=== PATIENT | male | born 1980 | race Caucasian/White ===

== ENCOUNTER 2020-10-28 21:20 | Observation (INO) | payer BC ==
[~2020-10-28] VITALS: Ht 180.3 cm; Wt 81.9 kg
--- NOTE | 2020-10-29 00:20 | PHYS DOC ---
Past Medical History Past Medical History: Hypertension (LESA DOWD APRN) Past Surgical History: No Surgical History (LESA DOWD APRN) Smoking Status: Current Every Day Smoker Alcohol Use: None (LESA DOWD APRN) General Adult EDM: Chief Complaint: BLOODY STOOL HPI: HPI: Patient is a 40 year old male patient comes in with 2 episodes of bright red blood in his stools this evening. States he has never had this before, states there was a small amount of blood each time penis after having a stool, states he has had some watery diarrhea for the last day. States no prior episodes of watery stool. States he has had some upper abdominal discomfort and cramping for the last couple days, worsening today. States no fever, no nausea, no vomiting, no recent constipation. He has not take any medications for this. He does report he had previously been on antihypertensive medications as well as antianxiety medications however he has not taken these for a while since he change positions. Does report he has history of anxiety, he feels rather anxious right now. Denies any urinary changes. States he has never had any bloody stools, states blood was not dark or clotted, was just a small amount of bright red blood (LESA DOWD APRN) Review of Systems: Review of Systems: Constitutional: Denies fever or chills. [] Eyes: Denies change in visual acuity. [] HENT: Denies nasal congestion or sore throat. [] Respiratory: Denies cough or shortness of breath. [] Cardiovascular: Denies chest pain or edema. [] GI: Denies abdominal pain, nausea, vomiting [] States he has had 2 bright red bloody stools and some diarrhea today. : Denies dysuria. [] Musculoskeletal: Denies back pain or joint pain. [] Integument: Denies rash. [] Neurologic: Denies headache, focal weakness or sensory changes. [] Endocrine: Denies polyuria or polydipsia. [] Lymphatic: Denies swollen glands. [] Psychiatric: Denies depression . [][ States he has a history of anxiety, he has not been on meds for a while and he feels anxious about his ER visit. (LESA DOWD APRN) Heart Score: C/O Chest Pain: No Risk Factors: Risk Factors: DM, Current or recent (<one month) smoker, HTN, HLP, family history of CAD, obesity. Risk Scores: Score 0 - 3: 2.5% MACE over next 6 weeks - Discharge Home Score 4 - 6: 20.3% MACE over next 6 weeks - Admit for Clinical Observation Score 7 - 10: 72.7% MACE over next 6 weeks - Early Invasive Strategies (LESA DOWD APRN) Allergies: Allergies: Allergies Uncoded Allergies Type Severity Reaction Last Updated Verified BLOOD PRESSURE MEDICINE NOT SURE NAME Allergy Unknown 10/28/20 (LESA DOWD APRN) Physical Exam: PE: Constitutional: Well developed, well nourished, no acute distress, non-toxic appearance. [] HENT: Normocephalic, atraumatic, bilateral external ears normal, oropharynx moist, no oral exudates, nose normal. [] Eyes: PERRLA, EOMI, conjunctiva normal, no discharge. [] Neck: Normal range of motion, no tenderness, supple, no stridor. [] Cardiovascular:Heart rate regular rhythm, no murmur [] Lungs & Thorax: Bilateral breath sounds clear to auscultation [] Abdomen: Bowel sounds normal, soft, no masses, no pulsatile masses. [] tend erness to LLQ. Negative Rovsig. Negative Psoas. Negative Obturator. Negative Donis's. Skin: Warm, dry, no erythema, no rash. [] Back: No tenderness, no CVA tenderness. [] Extremities: No tenderness, no cyanosis, no clubbing, ROM intact, no edema. [] Neurologic: Alert and oriented X 3, normal motor function, normal sensory function, no focal deficits noted. [] Psychologic: Affect normal, judgement normal, mood normal. [] Rectal exam without noted lesions, bleeding, or visible external hemorroids. on Fecal Occult Blood, small amount of blood external rectum noted. no blood noted to rectal vault. No lesions palpated. (LESA DOWD APRN) Current Patient Data: Vital Signs: Vital Signs Date Time Temp Pulse Resp B/P (MAP) Pulse Ox O2 Delivery O2 Flow Rate FiO2 10/28/20 23:39 98.1 97 20 173/131 (145) 97 Room Air 98.1 (LESA DOWD APRN) EKG: EKG: [] (LESA DOWD APRN) Radiology/Procedures: Radiology/Procedures: [] (LESA DOWD APRN) Radiology/Procedures: IMAGING REPORT Signed PATIENT: SORAYA CYR ACCOUNT: [id number] : 1980 LOCATION: ER AGE: 40 SEX: M EXAM STATUS: REG ER ORD. PHYSICIAN: LESA DOWD APRN REASON: LLQ abdominal pain PROCEDURE: CT ABD PELV W/ IV CONTRST ONLY EXAMINATION: CT ABDOMEN+PELVIS W CLINICAL HISTORY: Left lower quadrant abdominal pain TECHNIQUE: CT of the abdomen and pelvis was performed using standard technique, scanning from just above the dome of the diaphragm to the symphysis pubis following administration of intravenous contrast. CT Dose Reduction Employed: One or more of the following individualized dose reduction techniques were utilized for this examination: 1. Automated exposure control 2. Adjustment of the mA and/or kV according to patient size 3. Use of iterative reconstruction technique. COMPARISON: None FINDINGS: Partially visualized heart and lungs unremarkable. Contracted gallbladder suboptimally evaluated. Liver, pancreas, spleen, and adrenal glands unremarkable. Subcentimeter hypoenhancing cortical focus in the midpole the left kidney, too small adequately characterize but likely benign. Minimally filled urinary bladder suboptimally evaluated. Nonenlarged prostate. Fluid-filled ascending and proximal transverse colon with dependent hyperdensity in the cecum, nonspecific. No bowel dilation or definite wall thickening. Normal appendix. No abdominal aortic or iliac artery aneurysm. No evidence of acute osseous abnormality. IMPRESSION: No definitive evidence of acute abdominopelvic abnormality. Fluid-filled ascending and proximal transverse colon, nonspecific. Electronically signed by: Harsha Farley DO (10/29/2020 1:37 AM) [facility] DICTATED and SIGNED BY: HARSHA FARLEY DO DATE: 10/29/20 [id number] ([facility]) Course & Med Decision Making: Course & Med Decision Making Pertinent Labs and Imaging studies reviewed. (See chart for details) []Patient with noted hypertension. Does report he had been off his hypertensive medications for quite some time. He is agreeable to starting on them again, he does not know what he was taking before. @[address] Mejia, pending imaging and disposition of patient. (LESA DOWD APRN) Course & Med Decision Making I received sign out at shift change. 40-year-old male (not on any anticoagulants) with concern for 2 episodes of bright red blood per rectum in setting of uncontrolled hypertension and leukocytosis. N.p.o. 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 CT abdomen/pelvis with no definitive acute process, w/fluid-filled colonic loops. Patient continues to have abdominal pain. Will admit for further medical management and GI consultation. Patient stable at time of admission and agrees with this plan. I have spoken with the patient and/or caregivers. I have explained the patient's condition, diagnosis and treatment plan based on the information available to me at this time. I have answered the patient's and/or caregivers questions and answered any concerns. The patient and/or caregivers have as good an understanding of the patient's diagnosis, condition and treatment plan as can be expected at this point. The patient has been stabilized within the capability of the emergency department. The patient will be transported for further care and management or will be moved to an observation or inpatient service. I have communicated with the staff or medical practitioner taking over this patient's care. (JOSÉ MEJIA DO) Dragon Disclaimer: Dragon Disclaimer: This electronic medical record was generated, in whole or in part, using a voice recognition dictation system. (LESA DOWD APRN) Departure Departure Impression: Primary Impression: Hematochezia Additional Impressions: Uncontrolled hypertension Leukocytosis Disposition: ADMITTED INPATIENT Admitting Physician: GAYE (Dr. hTao) (JOSÉ MEJIA DO) Condition: STABLE Referrals: NO PCP (PCP) LESA DOWD APRN Oct 29, 2020 00:20 JOSÉ MEJIA DO Oct 29, 2020 02:16
[2020-10-29 00:21] LABS: BASO # 0.1 x10^3/uL (0.0-0.2); BASO % 0 % (0-3); EOS % 0 % (0-3); HEMATOCRIT 46.4 % (39.0-53.0); HEMOGLOBIN 16.2 g/dL (13.0-17.5); LYMPH # 3.5 x10^3/uL (1.0-4.8); LYMPH % 18 % (24-48); MEAN CORPUSCULAR HEMOGLOBIN 31 pg (25-35); MEAN CORPUSCULAR HGB CONC 35 g/dL (31-37); MEAN CORPUSCULAR VOLUME 88 fL (79-100); MONO # 1.3 x10^3/uL (0.0-1.1); MONO % 7 % (0-9); NEUT # 14.9 x10^3/uL (1.8-7.7); NEUT % 75 % (31-73); PLATELET COUNT 370 x10^3/uL (140-400); RED BLOOD COUNT 5.25 x10^6/uL (4.30-5.70); RED CELL DISTRIBUTION WIDTH 14.6 % (11.5-14.5); WHITE BLOOD COUNT 19.8 x10^3/uL (4.0-11.0)
[2020-10-29 00:23] LABS: BILIRUBIN,URINE NEGATIVE (NEG); CLARITY,URINE CLEAR; COLOR,URINE YELLOW; NITRITE,URINE NEGATIVE (NEG); PROTEIN,URINE NEGATIVE (NEG-TRACE); UROBILINOGEN,URINE 0.2 mg/dL (0.2 mg/dL)
[2020-10-29 00:34] LABS: CALCIUM 11.9 mg/dL (8.5-10.1); CREATININE 1.1 mg/dL (0.7-1.3); GFR 74.1; POTASSIUM 3.9 mmol/L (3.5-5.1)
[2020-10-29 00:40] LABS: ALBUMIN 4.5 g/dL (3.4-5.0); ALBUMIN/GLOBULIN RATIO 1.2 (1.0-1.7); TOTAL BILIRUBIN 0.3 mg/dL (0.2-1.0); TOTAL PROTEIN 8.4 g/dL (6.4-8.2)
[2020-10-29 00:40] LABS: BACTERIA,URINE 0 /HPF (0-FEW); GRANULAR CASTS,URINE OCCASIONAL /HPF; HYALINE CASTS, URINE OCCASIONAL /HPF
[2020-10-29] MEDS ORDERED: CONTRAST GIVEN. MC PRN (01:00)
[2020-10-29 01:03] LABS: FECAL OB PT POSITIVE (NEG)
[2020-10-29] MEDS ORDERED: IV NORMAL SALINE 1000ML BAG 1,000 ML IV ONE (01:30)
[2020-10-29] MEDS ORDERED: IOHEXOL 300 MG/ML 100ML VIAL. IV ONE (01:30)
--- NOTE | 2020-10-29 01:39 | RAD ---
EXAMINATION: CT ABDOMEN+PELVIS W CLINICAL HISTORY: Left lower quadrant abdominal pain TECHNIQUE: CT of the abdomen and pelvis was performed using standard technique, scanning from just ab ove the dome of the diaphragm to the symphysis pubis following administration of intravenous contrast . CT Dose Reduction Employed: One or more of the following individualized dose reduction techniques wer e utilized for this examination: 1. Automated exposure control 2. Adjustment of the mA and/or kV ac cording to patient size 3. Use of iterative reconstruction technique. COMPARISON: None FINDINGS: Partially visualized heart and lungs unremarkable. Contracted gallbladder suboptimally evaluated. Liver, pancreas, spleen, and adrenal glands unremarkab le. Subcentimeter hypoenhancing cortical focus in the midpole the left kidney, too small adequately dilia cterize but likely benign. Minimally filled urinary bladder suboptimally evaluated. Nonenlarged prostate. Fluid-filled ascending and proximal transverse colon with dependent hyperdensity in the cecum, nonspe cific. No bowel dilation or definite wall thickening. Normal appendix. No abdominal aortic or iliac artery aneurysm. No evidence of acute osseous abnormality. IMPRESSION: No definitive evidence of acute abdominopelvic abnormality. Fluid-filled ascending and proximal transverse colon, nonspecific. Electronically signed by: Harsha Diggs DO (10/29/2020 1:37 AM) [facility]
[2020-10-29 01:55] LABS: % LYMPHS 14 % (24-48); % MONOS 6 % (0-10); % SEGS 80 % (35-66); PLT ESTIMATE ADEQUATE (ADEQUATE)
[2020-10-29] MEDS ORDERED: FAMOTIDINE 20 MG/2 ML VIAL IVP ONE (04:15)
[2020-10-29] MEDS ORDERED: PANTOPRAZOLE IV PUSH 40 MG VIAL. IVP ONE (05:00)
[2020-10-29] MEDS ORDERED: hydrALAZINE 20 MG/ML VIAL. IVP PRN (06:30)
[2020-10-29] MEDS ORDERED: HALOPERIDOL LACTATE 5 MG/ML VIAL. IVP PRN (06:45)
[2020-10-29] MEDS ORDERED: diphenhydrAMINE 50 MG/ML VIAL IVP PRN (06:45)
[2020-10-29] MEDS ORDERED: BP med (06:46)
[2020-10-29 07:00] VITALS: BP 170/111
--- NOTE | 2020-10-29 07:04 | PDOC1 ---
History and Physical Date of Admission Date of Admission DATE: 10/29/20 TIME: 06:35 Identification/Chief Complaint Chief Complaint Hematochezia Source Source: Chart review, Patient History of Present Illness History of Present Illness Patient is a 40-year-old male with past medical history anxiety, hypertension, EtOH abuse, who presents to the ED with 2 episodes of bright red blood per rectum last evening. States he is never had any similar symptoms prior. He reports associated upper abdominal cramping for the past 2 days. Labs on admission, hemoglobin 16.2, hematocrit 46.4, WBC 19.8, lactic acid 2.5, stool occult blood positive. CT abdomen/pelvis showed no definitive process, but fluid-filled ascending proximal transverse colon. Of note, patient drinks anywhere from 212 beers on the weekends, and states on Tuesday evening he drank from 9 PM to 1 AM the next morning. He does admit to regular NSAID use due to his intermittent work induced headaches. He was admitted for further medical management. Past Medical History Past Medical History Anxiety, HTN Past Surgical History Past Surgical History: No pertinent history Family History Family History: Hypertension Social History Smoke: 1 pack per day ALCOHOL: heavy Drugs: None Current Problem List Problem List Problems Medical Problems: (1) Hematochezia Status: Acute (2) Leukocytosis Status: Acute (3) Uncontrolled hypertension Status: Acute Current Medications Current Medications Current Medications Iohexol (Omnipaque 300 Mg/ml) 75 ml 1X ONCE IV Last administered on 10/29/20at 01:00; Start 10/29/20 at 01:30; Stop 10/29/20 at 01:31; Status DC Sodium Chloride 1,000 ml @ 1,000 mls/hr 1X ONCE IV Last administered on 10/29/20at 02:13; Start 10/29/20 at 01:30; Stop 10/29/20 at 02:29; Status DC Info (CONTRAST GIVEN -- Rx MONITORING) 1 each PRN DAILY PRN MC SEE COMMENTS; Start 10/29/20 at 01:00; Stop 10/31/20 at 00:59 Famotidine (Pepcid Vial) 80 mg 1X ONCE IVP ; Start 10/29/20 at 04:15; Stop 10/29/20 at 04:16; Status UNV Pantoprazole Sodium (PROTONIX VIAL for IV PUSH) 80 mg 1X ONCE IVP Last administered on 10/29/20at 05:00; Start 10/29/20 at 05:00; Stop 10/29/20 at 05:01; Status DC Hydralazine HCl (Apresoline Inj) 10 mg PRN Q4HRS PRN IVP ELEVATED BP, SEE COMMENTS; Start 10/29/20 at 06:30; Status UNV Allergies Allergies: Coded Allergies: lisinopril (Verified Allergy, Severe, Swelling, 10/29/20) tongue swollen ROS Review of System GENERAL: No history of weight change, weakness or fevers. SKIN: No bruising, hair changes or rashes. EYES: No blurred, double or loss of vision. NOSE AND THROAT: No history of nosebleeds, hoarseness or sore throat. HEART: Denies chest pain, denies palpitations. LUNGS: Denies cough, hemoptysis, wheezing or shortness of breath. GASTROINTESTINAL: Hematochezia, abdominal pain. Denies nausea, vomiting. GENITOURINARY: Denies dysuria, frequency, urgency, hematuria. NEUROLOGIC: Denies history of numbness, tingling, tremor or weakness. PSYCHIATRIC: Denies anxiety, denies depression. ENDOCRINE: No history of heat or cold intolerance, polyuria or polydipsia. EXTREMITIES: Denies muscle weakness, joint pain, pain on walking or stiffness. Physical Exam Physical Exam General: Alert, Oriented X3, Cooperative, No acute distress HEENT: PERRLA, EOMI Lungs: Clear to auscultation, Normal air movement Heart: RRR, no murmurs Cardiovascular: S1, S2 Abdomen: Normal bowel sounds, Soft, No tenderness Extremities: No clubbing, No cyanosis Skin: No rashes, No significant lesion Neuro: Normal speech, Normal tone, Sensation intact Psych/Mental Status: Mental status NL, Mood NL Vitals Vitals Vital Signs Date Time Temp Pulse Resp B/P (MAP) Pulse Ox O2 Delivery O2 Flow Rate FiO2 10/29/20 04:36 74 9 179/102 (127) 10/28/20 23:39 98.1 97 Room Air 98.1 Labs Labs Laboratory Tests Test 10/28/20 21:34 10/29/20 00:01 10/29/20 00:41 10/29/20 04:27 Urine Color Yellow Urine Clarity Clear Urine pH 6.0 (<5.0-8.0) Urine Specific [place] 1.020 (1.000-1.030) Urine Protein Negative mg/dL (NEG-TRACE) Urine Glucose (UA) Negative mg/dL (NEG) Urine Ketones (Stick) Trace mg/dL (NEG) Urine Blood Negative (NEG) Urine Nitrite Negative (NEG) Urine Bilirubin Negative (NEG) Urine Urobilinogen Dipstick 0.2 mg/dL (0.2 mg/dL) Urine Leukocyte Esterase Negative (NEG) Urine RBC 1-2 /HPF (0-2) Urine WBC 1-4 /HPF (0-4) Urine Squamous Epithelial Cells Occ /LPF Urine Bacteria 0 /HPF (0-FEW) Urine Hyaline Casts Occasional /HPF Urine Granular Casts Occasional /HPF Urine Mucus Slight /LPF White Blood Count 19.8 x10^3/uL (4.0-11.0) Red Blood Count 5.25 x10^6/uL (4.30-5.70) Hemoglobin 16.2 g/dL (13.0-17.5) Hematocrit 46.4 % (39.0-53.0) Mean Corpuscular Volume 88 fL (79-100) Mean Corpuscular Hemoglobin 31 pg (25-35) Mean Corpuscular Hemoglobin Concent 35 g/dL (31-37) Red Cell Distribution Width 14.6 % (11.5-14.5) Platelet Count 370 x10^3/uL (140-400) Neutrophils (%) (Auto) 75 % (31-73) Lymphocytes (%) (Auto) 18 % (24-48) Monocytes (%) (Auto) 7 % (0-9) Eosinophils (%) (Auto) 0 % (0-3) Basophils (%) (Auto) 0 % (0-3) Neutrophils # (Auto) 14.9 x10^3/uL (1.8-7.7) Lymphocytes # (Auto) 3.5 x10^3/uL (1.0-4.8) Monocytes # (Auto) 1.3 x10^3/uL (0.0-1.1) Eosinophils # (Auto) 0.0 x10^3/uL (0.0-0.7) Basophils # (Auto) 0.1 x10^3/uL (0.0-0.2) Segmented Neutrophils % 80 % (35-66) Lymphocytes % 14 % (24-48) Monocytes % 6 % (0-10) Platelet Estimate Adequate (ADEQUATE) Sodium Level 141 mmol/L (136-145) Potassium Level 3.9 mmol/L (3.5-5.1) Chloride Level 102 mmol/L (98-107) Carbon Dioxide Level 26 mmol/L (21-32) Anion Gap 13 (6-14) Blood Urea Nitrogen 9 mg/dL (8-26) Creatinine 1.1 mg/dL (0.7-1.3) Estimated GFR (Cockcroft-Gault) 74.1 BUN/Creatinine Ratio 8 (6-20) Glucose Level 115 mg/dL (70-99) Lactic Acid Level 2.5 mmol/L (0.4-2.0) 1.3 mmol/L (0.4-2.0) Calcium Level 11.9 mg/dL (8.5-10.1) Total Bilirubin 0.3 mg/dL (0.2-1.0) Aspartate Amino Transf (AST/SGOT) 21 U/L (15-37) Alanine Aminotransferase (ALT/SGPT) 24 U/L (16-63) Alkaline Phosphatase 88 U/L (46-116) Total Protein 8.4 g/dL (6.4-8.2) Albumin 4.5 g/dL (3.4-5.0) Albumin/Globulin Ratio 1.2 (1.0-1.7) Stool Occult Blood Positive (NEG) Laboratory Tests Test 10/28/20 21:34 10/29/20 00:01 10/29/20 00:41 10/29/20 04:27 Urine Color Yellow Urine Clarity Clear Urine pH 6.0 (<5.0-8.0) Urine Specific [place] 1.020 (1.000-1.030) Urine Protein Negative mg/dL (NEG-TRACE) Urine Glucose (UA) Negative mg/dL (NEG) Urine Ketones (Stick) Trace mg/dL (NEG) Urine Blood Negative (NEG) Urine Nitrite Negative (NEG) Urine Bilirubin Negative (NEG) Urine Urobilinogen Dipstick 0.2 mg/dL (0.2 mg/dL) Urine Leukocyte Esterase Negative (NEG) Urine RBC 1-2 /HPF (0-2) Urine WBC 1-4 /HPF (0-4) Urine Squamous Epithelial Cells Occ /LPF Urine Bacteria 0 /HPF (0-FEW) Urine Hyaline Casts Occasional /HPF Urine Granular Casts Occasional /HPF Urine Mucus Slight /LPF White Blood Count 19.8 x10^3/uL (4.0-11.0) Red Blood Count 5.25 x10^6/uL (4.30-5.70) Hemoglobin 16.2 g/dL (13.0-17.5) Hematocrit 46.4 % (39.0-53.0) Mean Corpuscular Volume 88 fL (79-100) Mean Corpuscular Hemoglobin 31 pg (25-35) Mean Corpuscular Hemoglobin Concent 35 g/dL (31-37) Red Cell Distribution Width 14.6 % (11.5-14.5) Platelet Count 370 x10^3/uL (140-400) Neutrophils (%) (Auto) 75 % (31-73) Lymphocytes (%) (Auto) 18 % (24-48) Monocytes (%) (Auto) 7 % (0-9) Eosinophils (%) (Auto) 0 % (0-3) Basophils (%) (Auto) 0 % (0-3) Neutrophils # (Auto) 14.9 x10^3/uL (1.8-7.7) Lymphocytes # (Auto) 3.5 x10^3/uL (1.0-4.8) Monocytes # (Auto) 1.3 x10^3/uL (0.0-1.1) Eosinophils # (Auto) 0.0 x10^3/uL (0.0-0.7) Basophils # (Auto) 0.1 x10^3/uL (0.0-0.2) Segmented Neutrophils % 80 % (35-66) Lymphocytes % 14 % (24-48) Monocytes % 6 % (0-10) Platelet Estimate Adequate (ADEQUATE) Sodium Level 141 mmol/L (136-145) Potassium Level 3.9 mmol/L (3.5-5.1) Chloride Level 102 mmol/L (98-107) Carbon Dioxide Level 26 mmol/L (21-32) Anion Gap 13 (6-14) Blood Urea Nitrogen 9 mg/dL (8-26) Creatinine 1.1 mg/dL (0.7-1.3) Estimated GFR (Cockcroft-Gault) 74.1 BUN/Creatinine Ratio 8 (6-20) Glucose Level 115 mg/dL (70-99) Lactic Acid Level 2.5 mmol/L (0.4-2.0) 1.3 mmol/L (0.4-2.0) Calcium Level 11.9 mg/dL (8.5-10.1) Total Bilirubin 0.3 mg/dL (0.2-1.0) Aspartate Amino Transf (AST/SGOT) 21 U/L (15-37) Alanine Aminotransferase (ALT/SGPT) 24 U/L (16-63) Alkaline Phosphatase 88 U/L (46-116) Total Protein 8.4 g/dL (6.4-8.2) Albumin 4.5 g/dL (3.4-5.0) Albumin/Globulin Ratio 1.2 (1.0-1.7) Stool Occult Blood Positive (NEG) Images Images CT ABD PELV W/ IV CONTRST ONLY EXAMINATION: CT ABDOMEN+PELVIS W CLINICAL HISTORY: Left lower quadrant abdominal pain TECHNIQUE: CT of the abdomen and pelvis was performed using standard technique, scanning from just above the dome of the diaphragm to the symphysis pubis fo llowing administration of intravenous contrast. CT Dose Reduction Employed: One or more of the following individualized dose reduction techniques were utilized for this examination: 1. Automated exposure control 2. Adjustment of the mA and/or kV according to patient size 3. Use of iterative reconstruction technique. COMPARISON: None FINDINGS: Partially visualized heart and lungs unremarkable. Contracted gallbladder suboptimally evaluated. Liver, pancreas, spleen, and adrenal glands unremarkable. Subcentimeter hypoenhancing cortical focus in the midpole the left kidney, too small adequately characterize but likely benign. Minimally filled urinary bladder suboptimally evaluated. Nonenlarged prostate. Fluid-filled ascending and proximal transverse colon with dependent hyperdensity in the cecum, nonspecific. No bowel dilation or definite wall thickening. Normal appendix. No abdominal aortic or iliac artery aneurysm. No evidence of acute osseous abnormality. IMPRESSION: No definitive evidence of acute abdominopelvic abnormality. Fluid-filled ascending and proximal transverse colon, nonspecific. VTE Prophylaxis Ordered VTE Prophylaxis Devices: Yes VTE Pharmacological Prophylaxi: No Assessment/Plan Assessment/Plan Hematochezia EtOH abuse HTN Leukocytosis Lactic acidosis Plan: Consultation placed to GI; NPO for any possible acute intervention I doubt there will be any need for endoscopy or colonoscopy during this particular visit I counseled patient on EtOH and NSAID use Patient received IV PPI in the ER Alcohol withdrawal treatment protocol FEN - NPO PPX - SCDs FULL CODE Dispo - OBS for above I anticipate discharge home with self-care today Justifications for Admission Other Justification LUIZ MERRITT MD Oct 29, 2020 07:04
[2020-10-29] MEDS ORDERED: ACETAMINOPHEN 325 MG TABLET. PO PRN (07:15)
[2020-10-29] MEDS ORDERED: ONDANSETRON PF 4 MG/2 ML VIAL. IVP PRN (07:15)
[2020-10-29] MEDS ORDERED: CALCIUM CARBONATE 500 MG TAB.CHEW PO PRN (07:15)
[2020-10-29] MEDS ORDERED: MORPHINE SULFATE 2 MG/ML INJ. IV PRN (07:15)
[2020-10-29] MEDS ORDERED: MAG HYDROX/ALUMINUM HYD/SIMETH 30 ML ORAL.SUSP PO PRN (07:15)
[2020-10-29 08:59] VITALS: BP 179/102
[2020-10-29] MEDS ORDERED: MULTIVIT INFUSN,ADULT 4,VIT K 10 ML, THIAMINE INJ 100 MG, FOLIC ACID INJ 1 MG in IV NOR... IV SCH (09:00)
--- NOTE | 2020-10-29 09:02 | PDOC2 ---
GI CONSULT Date of Service: DATE: 10/29/20 TIME: 09:02 Reason For Consult: GI bleed HPI: HPI: 40 y/o male admitted through ER. "[place] off" x 2 weeks w/ fatigue and decreased appetite. Yesterday developed mid abdominal burning and diarrhea x 3, then hematochezia x 3. These symptoms have now resolved. Occasional heartburn after spicy foods, coffee, or beer. Takes Tums. No dysphagia, n/v, constipation, melena, or weight loss. Generally no issues w/ stooling or pain. No previous EGD or colonoscopy. No GB, liver, pancreas, or PUD history. Takes ibuprofen PRN. 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 Has been off medication for anxiety and HTN for 2.5 years. PMH: PMH: seizure x 1 ("electrolytes off"), HTN, anxiety FH: Family History: No pertinent hx (denies GI cancers and IBD) Social History: Smoke: <1 pack per day ALCOHOL: other (2-12 beers on weekends) Drugs: None ROS: GEN: +fatigue HEENT: Denies blurred vision, sore throat CV: Denies chest pain RESP: Denies shortness of air, cough GI: Per HPI : Denies hematuria, dysuria ENDO: Denies weight changes NEURO: Denies confusion, dizziness MSK: Denies weakness, joint pain/swelling SKIN: Denies jaundice, pruritus Vitals: Vitals: Vital Signs Date Time Temp Pulse Resp B/P (MAP) Pulse Ox O2 Delivery O2 Flow Rate FiO2 10/29/20 08:59 74 179/102 10/29/20 07:52 Room Air 10/29/20 04:36 9 10/28/20 23:39 98.1 97 98.1 Labs: Labs: Laboratory Tests Test 10/28/20 21:34 10/29/20 00:01 10/29/20 00:41 10/29/20 04:27 Urine Color Yellow Urine Clarity Clear Urine pH 6.0 (<5.0-8.0) Urine Specific [place] 1.020 (1.000-1.030) Urine Protein Negative mg/dL (NEG-TRACE) Urine Glucose (UA) Negative mg/dL (NEG) Urine Ketones (Stick) Trace mg/dL (NEG) Urine Blood Negative (NEG) Urine Nitrite Negative (NEG) Urine Bilirubin Negative (NEG) Urine Urobilinogen Dipstick 0.2 mg/dL (0.2 mg/dL) Urine Leukocyte Esterase Negative (NEG) Urine RBC 1-2 /HPF (0-2) Urine WBC 1-4 /HPF (0-4) Urine Squamous Epithelial Cells Occ /LPF Urine Bacteria 0 /HPF (0-FEW) Urine Hyaline Casts Occasional /HPF Urine Granular Casts Occasional /HPF Urine Mucus Slight /LPF White Blood Count 19.8 x10^3/uL (4.0-11.0) Red Blood Count 5.25 x10^6/uL (4.30-5.70) Hemoglobin 16.2 g/dL (13.0-17.5) Hematocrit 46.4 % (39.0-53.0) Mean Corpuscular Volume 88 fL (79-100) Mean Corpuscular Hemoglobin 31 pg (25-35) Mean Corpuscular Hemoglobin Concent 35 g/dL (31-37) Red Cell Distribution Width 14.6 % (11.5-14.5) Platelet Count 370 x10^3/uL (140-400) Neutrophils (%) (Auto) 75 % (31-73) Lymphocytes (%) (Auto) 18 % (24-48) Monocytes (%) (Auto) 7 % (0-9) Eosinophils (%) (Auto) 0 % (0-3) Basophils (%) (Auto) 0 % (0-3) Neutrophils # (Auto) 14.9 x10^3/uL (1.8-7.7) Lymphocytes # (Auto) 3.5 x10^3/uL (1.0-4.8) Monocytes # (Auto) 1.3 x10^3/uL (0.0-1.1) Eosinophils # (Auto) 0.0 x10^3/uL (0.0-0.7) Basophils # (Auto) 0.1 x10^3/uL (0.0-0.2) Segmented Neutrophils % 80 % (35-66) Lymphocytes % 14 % (24-48) Monocytes % 6 % (0-10) Platelet Estimate Adequate (ADEQUATE) Sodium Level 141 mmol/L (136-145) Potassium Level 3.9 mmol/L (3.5-5.1) Chloride Level 102 mmol/L (98-107) Carbon Dioxide Level 26 mmol/L (21-32) Anion Gap 13 (6-14) Blood Urea Nitrogen 9 mg/dL (8-26) Creatinine 1.1 mg/dL (0.7-1.3) Estimated GFR (Cockcroft-Gault) 74.1 BUN/Creatinine Ratio 8 (6-20) Glucose Level 115 mg/dL (70-99) Lactic Acid Level 2.5 mmol/L (0.4-2.0) 1.3 mmol/L (0.4-2.0) Calcium Level 11.9 mg/dL (8.5-10.1) Total Bilirubin 0.3 mg/dL (0.2-1.0) Aspartate Amino Transf (AST/SGOT) 21 U/L (15-37) Alanine Aminotransferase (ALT/SGPT) 24 U/L (16-63) Alkaline Phosphatase 88 U/L (46-116) Total Protein 8.4 g/dL (6.4-8.2) Albumin 4.5 g/dL (3.4-5.0) Albumin/Globulin Ratio 1.2 (1.0-1.7) Stool Occult Blood Positive (NEG) Allergies: Coded Allergies: lisinopril (Verified Allergy, Severe, Swelling, 10/29/20) tongue swollen Medications: Current Medications Medications (Trade) Dose Ordered Sig/Danni Route PRN Reason Start Time Stop Time Status Last Admin Dose Admin Iohexol (Omnipaque 300 Mg/ml) 75 ml 1X ONCE IV 10/29/20 01:30 10/29/20 01:31 DC 10/29/20 01:00 Sodium Chloride 1,000 ml @ 1,000 mls/hr 1X ONCE IV 10/29/20 01:30 10/29/20 02:29 DC 10/29/20 02:13 Pantoprazole Sodium (PROTONIX VIAL for IV PUSH) 80 mg 1X ONCE IVP 10/29/20 05:00 10/29/20 05:01 DC 10/29/20 05:00 Hydralazine HCl (Apresoline Inj) 10 mg PRN Q4HRS PRN IVP ELEVATED BP, SEE COMMENTS 10/29/20 06:30 10/29/20 08:59 Imaging: Imaging: CT A/P IMPRESSION: No definitive evidence of acute abdominopelvic abnormality. Fluid-filled ascending and proximal transverse colon, nonspecific. PE: GEN: NAD HEENT: Atraumatic, PERRL LUNGS: CTAB HEART: RRR ABD: NABS, S/ND/NT EXTREMITY: No edema SKIN: No rashes, no jaundice NEURO/PSYCH: A & O 3 A/P: A/P: Abd pain, diarrhea/hematochezia, fatigue Heartburn CRC screen - average risk -- ?infectious? Symptoms resolved. Labs normal. CT findings could relate to diarrhea. Try clears, ADAT. Consider DC soon if tolerates. If diarrhea recurs, check stool studies. 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 Can pursue outpt EGD and colonoscopy. D/w Dr. Dickerson later on - pt is asymptomatic, had a normal stool - plans for discharge. Our office will call to arrange scopes. MERRY SCHERER Oct 29, 2020 09:02
--- NOTE | 2020-10-29 09:20 | PDOC3 ---
Discharge Summary Visit Information Date of Admission: Oct 29, 2020 Date of Discharge: Oct 29, 2020 Final Diagnosis Problems Medical Problems: (1) Hematochezia Status: Acute (2) Leukocytosis Status: Acute (3) Uncontrolled hypertension Status: Acute Brief Hospital Course Allergies Allergies Coded Allergies Type Severity Reaction Last Updated Verified lisinopril Allergy Severe Swelling 10/29/20 Yes Vital Signs Vital Signs Date Time Temp Pulse Resp B/P (MAP) Pulse Ox O2 Delivery O2 Flow Rate FiO2 10/29/20 08:59 74 179/102 10/29/20 07:52 Room Air 10/29/20 04:36 9 10/28/20 23:39 98.1 97 98.1 Lab Results Laboratory Tests Test 10/28/20 21:34 10/29/20 00:01 10/29/20 00:41 10/29/20 04:27 Urine Color Yellow Urine Clarity Clear Urine pH 6.0 (<5.0-8.0) Urine Specific [place] 1.020 (1.000-1.030) Urine Protein Negative mg/dL (NEG-TRACE) Urine Glucose (UA) Negative mg/dL (NEG) Urine Ketones (Stick) Trace mg/dL (NEG) Urine Blood Negative (NEG) Urine Nitrite Negative (NEG) Urine Bilirubin Negative (NEG) Urine Urobilinogen Dipstick 0.2 mg/dL (0.2 mg/dL) Urine Leukocyte Esterase Negative (NEG) Urine RBC 1-2 /HPF (0-2) Urine WBC 1-4 /HPF (0-4) Urine Squamous Epithelial Cells Occ /LPF Urine Bacteria 0 /HPF (0-FEW) Urine Hyaline Casts Occasional /HPF Urine Granular Casts Occasional /HPF Urine Mucus Slight /LPF White Blood Count 19.8 x10^3/uL (4.0-11.0) Red Blood Count 5.25 x10^6/uL (4.30-5.70) Hemoglobin 16.2 g/dL (13.0-17.5) Hematocrit 46.4 % (39.0-53.0) Mean Corpuscular Volume 88 fL (79-100) Mean Corpuscular Hemoglobin 31 pg (25-35) Mean Corpuscular Hemoglobin Concent 35 g/dL (31-37) Red Cell Distribution Width 14.6 % (11.5-14.5) Platelet Count 370 x10^3/uL (140-400) Neutrophils (%) (Auto) 75 % (31-73) Lymphocytes (%) (Auto) 18 % (24-48) Monocytes (%) (Auto) 7 % (0-9) Eosinophils (%) (Auto) 0 % (0-3) Basophils (%) (Auto) 0 % (0-3) Neutrophils # (Auto) 14.9 x10^3/uL (1.8-7.7) Lymphocytes # (Auto) 3.5 x10^3/uL (1.0-4.8) Monocytes # (Auto) 1.3 x10^3/uL (0.0-1.1) Eosinophils # (Auto) 0.0 x10^3/uL (0.0-0.7) Basophils # (Auto) 0.1 x10^3/uL (0.0-0.2) Segmented Neutrophils % 80 % (35-66) Lymphocytes % 14 % (24-48) Monocytes % 6 % (0-10) Platelet Estimate Adequate (ADEQUATE) Sodium Level 141 mmol/L (136-145) Potassium Level 3.9 mmol/L (3.5-5.1) Chloride Level 102 mmol/L (98-107) Carbon Dioxide Level 26 mmol/L (21-32) Anion Gap 13 (6-14) Blood Urea Nitrogen 9 mg/dL (8-26) Creatinine 1.1 mg/dL (0.7-1.3) Estimated GFR (Cockcroft-Gault) 74.1 BUN/Creatinine Ratio 8 (6-20) Glucose Level 115 mg/dL (70-99) Lactic Acid Level 2.5 mmol/L (0.4-2.0) 1.3 mmol/L (0.4-2.0) Calcium Level 11.9 mg/dL (8.5-10.1) Total Bilirubin 0.3 mg/dL (0.2-1.0) Aspartate Amino Transf (AST/SGOT) 21 U/L (15-37) Alanine Aminotransferase (ALT/SGPT) 24 U/L (16-63) Alkaline Phosphatase 88 U/L (46-116) Total Protein 8.4 g/dL (6.4-8.2) Albumin 4.5 g/dL (3.4-5.0) Albumin/Globulin Ratio 1.2 (1.0-1.7) Stool Occult Blood Positive (NEG) Laboratory Tests Test 10/28/20 21:34 10/29/20 00:01 10/29/20 00:41 10/29/20 04:27 Urine Color Yellow Urine Clarity Clear Urine pH 6.0 (<5.0-8.0) Urine Specific [place] 1.020 (1.000-1.030) Urine Protein Negative mg/dL (NEG-TRACE) Urine Glucose (UA) Negative mg/dL (NEG) Urine Ketones (Stick) Trace mg/dL (NEG) Urine Blood Negative (NEG) Urine Nitrite Negative (NEG) Urine Bilirubin Negative (NEG) Urine Urobilinogen Dipstick 0.2 mg/dL (0.2 mg/dL) Urine Leukocyte Esterase Negative (NEG) Urine RBC 1-2 /HPF (0-2) Urine WBC 1-4 /HPF (0-4) Urine Squamous Epithelial Cells Occ /LPF Urine Bacteria 0 /HPF (0-FEW) Urine Hyaline Casts Occasional /HPF Urine Granular Casts Occasional /HPF Urine Mucus Slight /LPF White Blood Count 19.8 x10^3/uL (4.0-11.0) Red Blood Count 5.25 x10^6/uL (4.30-5.70) Hemoglobin 16.2 g/dL (13.0-17.5) Hematocrit 46.4 % (39.0-53.0) Mean Corpuscular Volume 88 fL (79-100) Mean Corpuscular Hemoglobin 31 pg (25-35) Mean Corpuscular Hemoglobin Concent 35 g/dL (31-37) Red Cell Distribution Width 14.6 % (11.5-14.5) Platelet Count 370 x10^3/uL (140-400) Neutrophils (%) (Auto) 75 % (31-73) Lymphocytes (%) (Auto) 18 % (24-48) Monocytes (%) (Auto) 7 % (0-9) Eosinophils (%) (Auto) 0 % (0-3) Basophils (%) (Auto) 0 % (0-3) Neutrophils # (Auto) 14.9 x10^3/uL (1.8-7.7) Lymphocytes # (Auto) 3.5 x10^3/uL (1.0-4.8) Monocytes # (Auto) 1.3 x10^3/uL (0.0-1.1) Eosinophils # (Auto) 0.0 x10^3/uL (0.0-0.7) Basophils # (Auto) 0.1 x10^3/uL (0.0-0.2) Segmented Neutrophils % 80 % (35-66) Lymphocytes % 14 % (24-48) Monocytes % 6 % (0-10) Platelet Estimate Adequate (ADEQUATE) Sodium Level 141 mmol/L (136-145) Potassium Level 3.9 mmol/L (3.5-5.1) Chloride Level 102 mmol/L (98-107) Carbon Dioxide Level 26 mmol/L (21-32) Anion Gap 13 (6-14) Blood Urea Nitrogen 9 mg/dL (8-26) Creatinine 1.1 mg/dL (0.7-1.3) Estimated GFR (Cockcroft-Gault) 74.1 BUN/Creatinine Ratio 8 (6-20) Glucose Level 115 mg/dL (70-99) Lactic Acid Level 2.5 mmol/L (0.4-2.0) 1.3 mmol/L (0.4-2.0) Calcium Level 11.9 mg/dL (8.5-10.1) Total Bilirubin 0.3 mg/dL (0.2-1.0) Aspartate Amino Transf (AST/SGOT) 21 U/L (15-37) Alanine Aminotransferase (ALT/SGPT) 24 U/L (16-63) Alkaline Phosphatase 88 U/L (46-116) Total Protein 8.4 g/dL (6.4-8.2) Albumin 4.5 g/dL (3.4-5.0) Albumin/Globulin Ratio 1.2 (1.0-1.7) Stool Occult Blood Positive (NEG) Brief Hospital Course Mr. Reddy is a 40 old male who presented with 2 episodes hematochezia. Labs on admission, hemoglobin 16.2, hematocrit 46.4, WBC 19.8, lactic acid 2.5, stool occult blood positive. CT abdomen/pelvis showed no definitive process, but fluid-filled ascending proximal transverse colon. Of note, patient drinks anywhere from 212 beers per day, and states on Tuesday evening he drank from 9 PM to 1 AM the next morning. He had another bowel movement while in hospital without any evidence of blood. Recommended follow-up with PCP and routine colonoscopy screening. Discharge Information Condition at Discharge: Improved Follow Up: Weeks Disposition/Orders: D/C to Home Miscellaneous Medications [BP med] , (Reported) Entered as Reported by: CLAIR FERGUSON on 10/29/20645 Last Action: New Order on 10/29/20645 by CLAIR FERGUSON Justicifation of Admission Dx: Justifications for Admission: Justification of Admission Dx: Yes LUIZ MERRITT MD Oct 29, 2020 09:19
[2020-10-29] MEDS ORDERED: PANT40TA77 PO (09:21)
[2020-10-29] MEDS ORDERED: PANTOPRAZOLE 40 MG TABLET.DR. PO SCH (09:30)
--- NOTE | 2020-10-29 12:22 | NUR ---
pt was discahrged home with self care today. no scripts were given to the pt and the pt was escorted to main entrance where he was picked up by an [employer]. 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 Mason Robertson RN
[2020-11-03] MEDS ORDERED: THIAMINE 100 MG TABLET. PO SCH (09:00)
[2020-11-03] MEDS ORDERED: FOLIC ACID 1 MG TABLET. PO SCH (09:00)
== END 2020-10-29 11:45 | disposition home or self-care (01) ==
LOC: ER 21:20 → 6 SOUTH 10-29 04:16 → INTOOBSV 10-29 04:16
PROVIDERS: ADMIT Internal Medicine; ATTEND Internal Medicine
DX: K92.1 Melena (principal); F10.10 Alcohol abuse, uncomplicated; I10 Essential (primary) hypertension; D72.829 Elevated white blood cell count, unspecified; E87.2 Acidosis; K64.9 Unspecified hemorrhoids; F41.9 Anxiety disorder, unspecified; R12 Heartburn; R56.9 Unspecified convulsions; F17.210 Nicotine dependence, cigarettes, uncomplicated
CPT/HCPCS: 36415; 74177; 80053; 81001; 82274; 83605; 85007; 85025; 96361; 96374; 96375; 99285; 99406; C9113; G0378; J0360; J7030; Q9967; G0379